=== PATIENT | male | born 1955 | race Caucasian/White ===

== ENCOUNTER 2020-07-02 15:13 | Inpatient (IN) | payer MEDICARE, OTHER ==
[~2020-07-02] VITALS: Ht 170.2 cm; Wt 96.6 kg
--- NOTE | 2020-07-02 15:10 | NUR ---
Got report from [facility] ER Nurse, Glenn. Received PT from [facility] ER via ambulance on a gurney. PT in bed, awake AO X 3. Can be forgetful but easily redirected. PT is super pleasant and cooperative. Make needs known to staff. Assessed Head to Toe. Documented in Nursing flow sheet. SOB and coughing noted. PT on O2 per order. Safety measures provided, call light within reach, bed low and lock. Will continue to monitor.
[2020-07-02 15:42] VITALS: BP 109/68
[2020-07-02] MEDS ORDERED: ONDANSETRON 4 MG/2 ML VIAL IV PRN (17:00)
[2020-07-02] MEDS ORDERED: CEFTRIAXONE 1 G in IV DEXTROSE 5% 50 ML IV SCH (17:00)
[2020-07-02] MEDS ORDERED: ACETAMINOPHEN 650 MG SUPP.RECT RC PRN (17:00)
[2020-07-02] MEDS: CEFTRIAXONE 2 G in IV DEXTROSE 5% 100 ML IV SCH (18:41)
--- NOTE | 2020-07-02 18:50 | NUR ---
PT in bed, awake AO X 3. Can be forgetful but easily redirected. PT is super pleasant and cooperative. Make needs known to staff. No complain of pain. SOB and coughing still noted. Safety measures provided, call light within reach, bed low and lock. Will endorse to evening or night nurse supervisor nurse
[2020-07-02 20:00] VITALS: BP 108/68
--- NOTE | 2020-07-02 20:00 | NUR ---
AWAKE,ALERTX3 IN NO ACUTE DISTRESS. O2 AT 4 LITERS SOB ONLY UPON EXERTION O2 SAT ADEQUATE.SLLEPING AT SHORT INTERVALS.ON COVID ISOLATION ,
[2020-07-02] MEDS ORDERED: AZITHROMYCIN 500MG/ D5W 250ML IVPB **ER PYXIS ONLY IV ONE (20:46)
[2020-07-02] MEDS: AZITHROMYCIN IV 500 MG in IV DEXTROSE 5% 250 ML IV SCH (23:24)
[2020-07-03] VITALS: BP 105/70
[2020-07-03 04:00] VITALS: BP 115/73
--- NOTE | 2020-07-03 07:09 | NUR ---
CONDITION UNCHANGED,IN NO ACUTE DISTRESS.
[2020-07-03 07:47] LABS: BASOPHILS % (AUTO) 0.1 % (0.0-2.0); HEMATOCRIT 44.8 % (36.7-47.1); HEMOGLOBIN 14.5 g/dL (12.5-16.3); LYMPHOCYTES # (AUTO) 0.8 K/uL (20.0-40.0); MEAN CORPUSCULAR HEMOGLOBIN 30.2 uug (23.8-33.4); MEAN CORPUSCULAR HGB CONC 32 g/dL (32.5-36.3); MEAN CORPUSCULAR VOLUME 93.5 fL (73.0-96.2); MONOCYTES # (AUTO) 0.8 K/uL (2.0-10.0); MONOCYTES % (AUTO) 5.1 % (0.0-11.0); NEUTROPHILS # (AUTO) 13.9 K/uL (1.8-8.9); NEUTROPHILS % (AUTO) 89.8 % (38.5-71.5); PLATELET COUNT (AUTO) 190 K/uL (152-348); RED BLOOD CELL COUNT(AUTO) 4.79 MIL/uL (4.06-5.63); WHITE BLOOD COUNT (AUTO) 15.5 K/uL (3.6-10.2)
[2020-07-03 08:19] LABS: BILIRUBIN,TOTAL 0.5 mg/dL (0.2-1.0); CREATININE 1.7 mg/dL (0.6-1.3)
[2020-07-03] MEDS: DEXAMETHASONE SOD PHOSPHATE 4 MG INJ IV SCH (11:11)
[2020-07-03 11:12] VITALS: BP 115/71
[2020-07-03] MEDS ORDERED: POTA10CA43 PO (13:12)
[2020-07-03] MEDS ORDERED: BUDE10.2 IH (13:12)
[2020-07-03] MEDS ORDERED: FURO40TA5 PO (13:12)
[2020-07-03] MEDS ORDERED: LISI10TA5 PO (13:12)
[2020-07-03 15:32] VITALS: BP 132/70
[2020-07-03] MEDS: CEFTRIAXONE 2 G in IV DEXTROSE 5% 100 ML IV SCH (17:56)
--- NOTE | 2020-07-03 18:31 | NUR ---
IN BED RESTING QUIETLY. O2 INCREASED TO 4LI MARY WELL BY PT SAYS HE FEELS BETTER. C/O DIFFICULTY BREATHING ON 2L. 1800 IV ATB IN WHEN I WENT TO FLUSH IV WAS OUT. NOT ABLE TO RESTART IV AT THIS TIME
--- NOTE | 2020-07-03 20:00 | NUR ---
AWAKE,ALERT PASSIVE RESTING COMFORTABLY, NO SOB AT O2 4 LITERS,IV RESTARTED GAUGE 22 ON RIGHT HAND. COVID ISOLATION MANTAINED, IN NO ACUTE DISTRESS SLEPT AT SHORT .
[2020-07-03] MEDS ORDERED: AZITHROMYCIN 500 MG VIAL IV ONE (21:25)
[2020-07-03 21:27] VITALS: BP 110/66
[2020-07-03] MEDS: AZITHROMYCIN IV 500 MG in IV DEXTROSE 5% 250 ML IV SCH (23:26)
[2020-07-04 01:17] VITALS: BP 95/60
[2020-07-04 06:49] VITALS: BP 107/76
[2020-07-04 09:14] LABS: BASOPHILS % (AUTO) 0.1 % (0.0-2.0); HEMATOCRIT 43.9 % (36.7-47.1); HEMOGLOBIN 14.4 g/dL (12.5-16.3); LYMPHOCYTES # (AUTO) 0.8 K/uL (20.0-40.0); LYMPHOCYTES % (AUTO) 4.9 % (20.5-51.5); MEAN CORPUSCULAR HEMOGLOBIN 30.7 uug (23.8-33.4); MEAN CORPUSCULAR HGB CONC 33 g/dL (32.5-36.3); MEAN CORPUSCULAR VOLUME 93.7 fL (73.0-96.2); MONOCYTES # (AUTO) 0.9 K/uL (2.0-10.0); MONOCYTES % (AUTO) 5.7 % (0.0-11.0); NEUTROPHILS # (AUTO) 14.1 K/uL (1.8-8.9); NEUTROPHILS % (AUTO) 89.3 % (38.5-71.5); PLATELET COUNT (AUTO) 228 K/uL (152-348); RED BLOOD CELL COUNT(AUTO) 4.69 MIL/uL (4.06-5.63); WHITE BLOOD COUNT (AUTO) 15.8 K/uL (3.6-10.2)
[2020-07-04] MEDS: FUROSEMIDE 40 MG TABLET PO SCH (09:20)
[2020-07-04] MEDS: LISINOPRIL 10 MG TABLET PO SCH ×2 (09:34→17:00)
[2020-07-04 09:46] LABS: CREATININE 1.6 mg/dL (0.6-1.3); MAGNESIUM 2.8 mg/dL (1.8-2.4); PHOSPHOROUS 3.3 mg/dL (2.5-4.9)
[2020-07-04 12:00] VITALS: BP 124/71
[2020-07-04 16:00] VITALS: BP 107/65
[2020-07-04] MEDS: CEFTRIAXONE 2 G in IV DEXTROSE 5% 100 ML IV SCH (17:10)
[2020-07-04] MEDS: DEXAMETHASONE SOD PHOSPHATE 4 MG INJ IV SCH (17:19)
--- NOTE | 2020-07-04 19:30 | NUR ---
Pt received in bed awake. On 15L NR sating at 94%. No acute distress noted. Pt denies pain. Call light is within reach. Bed is locked and in lowest position. No other issues or concerns at this time.
[2020-07-04 20:00] VITALS: BP 95/57
[2020-07-04 21:11] VITALS: BP 90/56
[2020-07-04] MEDS: AZITHROMYCIN IV 500 MG in IV DEXTROSE 5% 250 ML IV SCH (22:43)
[2020-07-04] MEDS: ENOXAPARIN SODIUM 40 MG/0.4 ML DISP.SYRIN SQ SCH (22:44)
[2020-07-05] VITALS: BP 99/59
[2020-07-05 01:31] VITALS: BP 96/61
[2020-07-05 04:00] VITALS: BP 97/62
--- NOTE | 2020-07-05 08:30 | NUR ---
Pt eating his breakfast without the NRB mask. PT SOB checked o2 sat 80%. Put NRB mask back on pt saturation went back to 94%. Educated pt to keep NRB mask while eating. Pt agreeable with plan of care. Pt denies any c/o pain. Call light is within reach.
[2020-07-05] MEDS: LISINOPRIL 10 MG TABLET PO SCH ×2 (09:00→17:00)
[2020-07-05] MEDS: FUROSEMIDE 40 MG TABLET PO SCH (09:18)
[2020-07-05] MEDS: DEXAMETHASONE SOD PHOSPHATE 4 MG INJ IV SCH (09:18)
[2020-07-05 10:07] LABS: ABG BASE EXCESS 1.1 mmol/L; ABG HCO3 23.4 mmol/L; ABG PCO2 30.9 mmHg (35.0-45.0); ABG PH 7.498 (7.350-7.450); ABG PO2 106.1 mmHg (75.0-100.0); ABG SITE LEFT RADIAL; ABG TOTAL HEMOGLOBIN 13.9 G/dL (13.5-18.0); COHb 0.2 % (0.5-1.5); MetHb 0.2 % (0.0-1.5)
[2020-07-05] MEDS ORDERED: LORAZEPAM 1 MG TABLET PO PRN (11:15)
[2020-07-05 11:53] VITALS: BP 120/71
[2020-07-05 16:00] VITALS: BP 16/68
[2020-07-05] MEDS: CEFTRIAXONE 2 G in IV DEXTROSE 5% 100 ML IV SCH (17:16)
--- NOTE | 2020-07-05 18:00 | NUR ---
PER DR. TRUONG, PATIENT PUT ON HI FLOW CURRENT SETTING AT 40 LPM WITH FIO2 100%. PT SATURATING 96%. PT MORE COMFORTABLE AND BREATHING LESS LABORED.
[2020-07-05 20:47] VITALS: BP 104/64
[2020-07-05] MEDS: ENOXAPARIN SODIUM 40 MG/0.4 ML DISP.SYRIN SQ SCH (21:20)
[2020-07-05] MEDS: AZITHROMYCIN IV 500 MG in IV DEXTROSE 5% 250 ML IV SCH (22:37)
[2020-07-06 00:56] VITALS: BP 104/63
[2020-07-06] MEDS: ACETAMINOPHEN 325 MG TABLET PO PRN (01:18)
[2020-07-06 04:00] VITALS: BP 112/72
[2020-07-06] MEDS: LISINOPRIL 10 MG TABLET PO SCH ×2 (08:34→16:36)
[2020-07-06] MEDS: DEXAMETHASONE SOD PHOSPHATE 4 MG INJ IV SCH (08:34)
--- NOTE | 2020-07-06 10:00 | NUR ---
Patient alert and oriented. Noted with labored breathing on fio2 100% 40 Lpm O2 sat at 93%. Added NRB mask at 15Lpm. 1030am Patient breathing less labored. Intervention effective.
[2020-07-06 11:42] VITALS: BP 117/70
[2020-07-06] MEDS: FUROSEMIDE 40 MG TABLET PO SCH (12:12)
[2020-07-06 16:00] VITALS: BP 121/66
--- NOTE | 2020-07-06 17:57 | NUR ---
Patient's breathing less labored. More comfortable on high flow O2 saturation noted at 93%.
[2020-07-06 20:00] VITALS: BP 127/81
[2020-07-06] MEDS: ENOXAPARIN SODIUM 40 MG/0.4 ML DISP.SYRIN SQ SCH (21:50)
[2020-07-07] VITALS: BP 122/81
[2020-07-07] MEDS: ACETAMINOPHEN 325 MG TABLET PO PRN (03:21)
[2020-07-07 04:00] VITALS: BP 103/71
[2020-07-07 07:05] LABS: BASOPHILS % (AUTO) 0.1 % (0.0-2.0); HEMATOCRIT 39.8 % (36.7-47.1); HEMOGLOBIN 13.2 g/dL (12.5-16.3); LYMPHOCYTES # (AUTO) 0.6 K/uL (20.0-40.0); LYMPHOCYTES % (AUTO) 6.4 % (20.5-51.5); MEAN CORPUSCULAR HEMOGLOBIN 30.8 uug (23.8-33.4); MEAN CORPUSCULAR HGB CONC 33 g/dL (32.5-36.3); MEAN CORPUSCULAR VOLUME 93.2 fL (73.0-96.2); MONOCYTES # (AUTO) 0.7 K/uL (2.0-10.0); NEUTROPHILS # (AUTO) 8.1 K/uL (1.8-8.9); NEUTROPHILS % (AUTO) 86.5 % (38.5-71.5); PLATELET COUNT (AUTO) 224 K/uL (152-348); RED BLOOD CELL COUNT(AUTO) 4.28 MIL/uL (4.06-5.63); WHITE BLOOD COUNT (AUTO) 9.4 K/uL (3.6-10.2)
[2020-07-07 07:39] LABS: CREATININE 1.6 mg/dL (0.6-1.3); POTASSIUM 4.1 mmol/L (3.5-5.1)
[2020-07-07] MEDS: LISINOPRIL 10 MG TABLET PO SCH ×2 (09:00→17:00)
[2020-07-07] MEDS: FUROSEMIDE 40 MG TABLET PO SCH (09:59)
[2020-07-07] MEDS: DEXAMETHASONE SOD PHOSPHATE 4 MG INJ IV SCH (09:59)
[2020-07-07 12:00] VITALS: BP 111/67
[2020-07-07 16:00] VITALS: BP 109/76
--- NOTE | 2020-07-07 17:01 | NUR ---
Patient alert and oriented. Patient's breathing less labored on fio2 100% 40 Lpm O2 sat at 93%. More comfortable on high flow O2 saturation noted at 93%. provided bedside commode for easy of toileting
[2020-07-07 20:00] VITALS: BP 117/69
--- NOTE | 2020-07-07 20:00 | NUR ---
Pt in bed, awake and oriented. Midline at right upper arm. Very cooperative, able to make needs known. VS stable. No complaints of pain. Call light is within reach, bed is low and locked.
[2020-07-07 20:03] VITALS: BP 117/69
[2020-07-07] MEDS: ENOXAPARIN SODIUM 40 MG/0.4 ML DISP.SYRIN SQ SCH (20:36)
[2020-07-08 04:27] VITALS: BP 115/72
[2020-07-08 06:14] VITALS: BP 115/72
--- NOTE | 2020-07-08 06:30 | NUR ---
Pt well rested at night. No complaints of pain. Safety measures implemented.
[2020-07-08] MEDS: FUROSEMIDE 40 MG TABLET PO SCH (09:16)
[2020-07-08] MEDS: DEXAMETHASONE SOD PHOSPHATE 4 MG INJ IV SCH (09:16)
[2020-07-08] MEDS: LISINOPRIL 10 MG TABLET PO SCH ×2 (09:33→17:11)
[2020-07-08 12:04] VITALS: BP 119/71
[2020-07-08 16:00] VITALS: BP 104/70
--- NOTE | 2020-07-08 18:36 | NUR ---
Patient remains alert, oriented x 3, not in any form of acute distress, on high flow nasal cannula 40 L. He denies any pain or discomfort. Needs attended to promptly. Call light and frequently used items placed within patient's reach. Right upper arm midline in place and patent with no signs of infection. Will continue to monitor and will endorse accordingly to next shift nurse.
[2020-07-08] MEDS: ENOXAPARIN SODIUM 40 MG/0.4 ML DISP.SYRIN SQ SCH (20:26)
[2020-07-08 20:27] VITALS: BP 102/62
--- NOTE | 2020-07-08 21:51 | NUR ---
Received pt sleeping comfortably. Aroused easily to verbal stimuli. AAO x3. On high flow 40L via NC, no acute distress noted. Denies pain/ discomfort. Safety measures maintained. Call light and personal items within reach. Will continue to monitor.
[2020-07-09 00:33] VITALS: BP 111/76
[2020-07-09 04:50] VITALS: BP 112/78
[2020-07-09] MEDS: FUROSEMIDE 40 MG TABLET PO SCH (08:24)
[2020-07-09] MEDS: DEXAMETHASONE SOD PHOSPHATE 4 MG INJ IV SCH (08:24)
[2020-07-09] MEDS: LISINOPRIL 10 MG TABLET PO SCH ×2 (08:24→17:00)
[2020-07-09 11:10] LABS: BASOPHILS # (AUTO) 0.2 K/uL (0.0-8.0); BASOPHILS % (AUTO) 1.5 % (0.0-2.0); EOSINOPHILS % (AUTO) 0.3 % (0.0-7.0); HEMATOCRIT 40.7 % (36.7-47.1); HEMOGLOBIN 13.6 g/dL (12.5-16.3); LYMPHOCYTES # (AUTO) 0.5 K/uL (20.0-40.0); LYMPHOCYTES % (AUTO) 3.9 % (20.5-51.5); MEAN CORPUSCULAR HGB CONC 33 g/dL (32.5-36.3); MONOCYTES # (AUTO) 0.4 K/uL (2.0-10.0); MONOCYTES % (AUTO) 3.5 % (0.0-11.0); NEUTROPHILS # (AUTO) 11.2 K/uL (1.8-8.9); NEUTROPHILS % (AUTO) 90.8 % (38.5-71.5); PLATELET COUNT (AUTO) 226 K/uL (152-348); RED BLOOD CELL COUNT(AUTO) 4.38 MIL/uL (4.06-5.63); WHITE BLOOD COUNT (AUTO) 12.3 K/uL (3.6-10.2)
[2020-07-09 11:13] LABS: CREATININE 1.4 mg/dL (0.6-1.3); MAGNESIUM 2.3 mg/dL (1.8-2.4)
[2020-07-09 12:00] VITALS: BP 102/63
[2020-07-09 16:00] VITALS: BP 108/67
[2020-07-09 20:12] VITALS: BP 113/68
[2020-07-09] MEDS: ENOXAPARIN SODIUM 40 MG/0.4 ML DISP.SYRIN SQ SCH (20:57)
--- NOTE | 2020-07-09 21:27 | NUR ---
Received pt sleeping comfortably. Aroused easily to verbal stimuli. AAO x3. On high flow 40L via NC. No acute distress noted. Breathing non- labored. Denies SOB, pain, discomfort. Due med given as ordered. Safety measures maintained. Call light and personal items within reach. Will continue to monitor.
[2020-07-10 00:10] VITALS: BP 105/70
[2020-07-10 04:21] VITALS: BP 104/66
--- NOTE | 2020-07-10 06:38 | NUR ---
Pt desated to 85% , labored breathing, on 40L high flow NC upon going to the bedside commode. Put on 15L non- rebreather mask, with relief and saturation of 93%. Will continue to monitor.
--- NOTE | 2020-07-10 07:30 | NUR ---
received report on patient. patient resting in bed, awake alert and oriented x3. Patient is on high flow O2 40L via NC and non rebreather saturating at 97%. no signs of distress noted. patient has a right upper arm midline. bed in low and locked position, safety and isolation precautions in place. Will continue to monitor.
[2020-07-10] MEDS: LISINOPRIL 10 MG TABLET PO SCH ×2 (09:00→17:00)
[2020-07-10] MEDS: FUROSEMIDE 40 MG TABLET PO SCH (10:07)
[2020-07-10] MEDS: DEXAMETHASONE SOD PHOSPHATE 4 MG INJ IV SCH (10:07)
[2020-07-10 11:16] VITALS: BP 100/67
[2020-07-10 12:00] VITALS: BP 96/61
--- NOTE | 2020-07-10 12:35 | NUR ---
Spoke to pt brother (Martell), gave updates on pt. Will continue to monitor.
[2020-07-10 16:22] VITALS: BP 93/62
--- NOTE | 2020-07-10 18:47 | NUR ---
Patient awake alert and oriented x 3. Patient on O2 via high flow oxygen 40L NC and nonrebreather at 15L, saturating at 93%, no signs of distress noted at this time. Patient on a classroom monitor, sinus rodríguez. IV midline on the right upper extremity. Pt. uses urinal and commode at bedside, skin intact. Medications given as ordered. COVID isolation and safety precautions in place. Will endorse to oncoming nurse.
[2020-07-10] MEDS: ENOXAPARIN SODIUM 40 MG/0.4 ML DISP.SYRIN SQ SCH ×2 (20:48→21:46)
[2020-07-10 21:31] VITALS: BP 108/74
[2020-07-11 01:19] VITALS: BP 107/71
[2020-07-11 06:40] VITALS: BP 99/62
[2020-07-11 07:35] LABS: BASOPHILS % (AUTO) 0.1 % (0.0-2.0); EOSINOPHILS # (AUTO) 0.1 K/uL (0.0-0.7); EOSINOPHILS % (AUTO) 0.4 % (0.0-7.0); HEMATOCRIT 41.2 % (36.7-47.1); LYMPHOCYTES # (AUTO) 0.9 K/uL (20.0-40.0); MEAN CORPUSCULAR HEMOGLOBIN 31.3 uug (23.8-33.4); MEAN CORPUSCULAR HGB CONC 34 g/dL (32.5-36.3); MEAN CORPUSCULAR VOLUME 92.1 fL (73.0-96.2); MONOCYTES # (AUTO) 0.5 K/uL (2.0-10.0); MONOCYTES % (AUTO) 3.9 % (0.0-11.0); NEUTROPHILS # (AUTO) 11.8 K/uL (1.8-8.9); NEUTROPHILS % (AUTO) 88.6 % (38.5-71.5); PLATELET COUNT (AUTO) 247 K/uL (152-348); RED BLOOD CELL COUNT(AUTO) 4.47 MIL/uL (4.06-5.63); WHITE BLOOD COUNT (AUTO) 13.3 K/uL (3.6-10.2)
[2020-07-11 08:14] LABS: CREATININE 1.3 mg/dL (0.6-1.3); MAGNESIUM 2.3 mg/dL (1.8-2.4); PHOSPHOROUS 3.8 mg/dL (2.5-4.9); POTASSIUM 4.4 mmol/L (3.5-5.1)
[2020-07-11] MEDS: LISINOPRIL 10 MG TABLET PO SCH ×2 (09:00→16:38)
[2020-07-11] MEDS: DEXAMETHASONE SOD PHOSPHATE 4 MG INJ IV SCH (09:27)
[2020-07-11] MEDS: FUROSEMIDE 40 MG TABLET PO SCH (09:28)
[2020-07-11 12:00] VITALS: BP 104/62
[2020-07-11 13:50] LABS: BAND % (MANUAL) 23 % (0-10); LYMPHOCYTES % (MANUAL) 11 % (20-40); MONOCYTES % (MANUAL) 5 % (2-10); NEUTROPHILS % (MANUAL) 61 % (42-75)
[2020-07-11 16:28] VITALS: BP 105/76
[2020-07-11 21:07] VITALS: BP 93/58
[2020-07-11] MEDS: ENOXAPARIN SODIUM 40 MG/0.4 ML DISP.SYRIN SQ SCH (22:09)
[2020-07-11] MEDS: ACETAMINOPHEN 325 MG TABLET PO PRN (22:26)
[2020-07-12 00:32] VITALS: BP 99/60
[2020-07-12 05:10] VITALS: BP 94/60
--- NOTE | 2020-07-12 08:00 | NUR ---
Patient in bed. Alert and oriented. Patient is on O2 nonrebreather at 15L, saturating at 100%. No signs of distress noted. IV Midline on Right Upper Arm. COVID isolation and precautions in place. Will continue to monitor.
[2020-07-12] MEDS: ENSURE ENLIVE (VAN) 240 ML LIQUID PO SCH ×2 (08:58→17:00)
[2020-07-12] MEDS: LISINOPRIL 10 MG TABLET PO SCH ×2 (09:00→17:00)
[2020-07-12] MEDS: DEXAMETHASONE SOD PHOSPHATE 4 MG INJ IV SCH (09:04)
[2020-07-12] MEDS: FUROSEMIDE 40 MG TABLET PO SCH (09:10)
[2020-07-12 11:30] VITALS: BP 111/57
[2020-07-12 15:57] VITALS: BP 107/61
--- NOTE | 2020-07-12 16:30 | NUR ---
DR TRUONG HERE TO SEE PATIENT WITH NO NEW ORDERS AT THIS TIME.
--- NOTE | 2020-07-12 18:00 | NUR ---
REMAIN ON O2 HI FLOW AND NRM WITH SATS AT 88-89 DR TRUONG AWARE AND STATED TO JUST OBSERVE HIM FOR NOW LONG HIS SATS IS ABOVE 85 WILL NOT NEED TO INTUBATE.
--- NOTE | 2020-07-12 20:00 | NUR ---
Received patient lying in bed. AAOx3-4. Denies any pain or SOB. On high flow O2 at 40L with 100% FiO2. O2 sat at 90% at this time. Sinus rodríguez on tele at 59/min at this time. IV site on right arm intact and patent. COVID isolation precaution initiated. Safety measure initiated and call bowers within reached.
[2020-07-12] MEDS: ENOXAPARIN SODIUM 40 MG/0.4 ML DISP.SYRIN SQ SCH (20:47)
[2020-07-12 22:49] VITALS: BP 90/58
[2020-07-13 01:06] VITALS: BP 99/61
[2020-07-13 04:37] VITALS: BP 98/62
[2020-07-13] MEDS: ALBUTEROL SULFATE 8 GM HFA.AER.AD IH PRN ×2 (06:05→09:41)
--- NOTE | 2020-07-13 06:36 | NUR ---
Patient slept well last night. No significant event noted throughout the shift. Remains on high flow O2 at 40L with 100% FiO2. O2 sat fluctuates between 87-90%. Patient denies any SOB when asked. NSR on tele at 68/min. IV site on right arm intact and patent. COVID isolation precaution maintained. Safety measure maintained and call bowers within reached.
[2020-07-13] MEDS: ENSURE ENLIVE (VAN) 240 ML LIQUID PO SCH ×2 (08:17→16:55)
[2020-07-13] MEDS: FUROSEMIDE 40 MG TABLET PO SCH (08:30)
[2020-07-13] MEDS: LISINOPRIL 10 MG TABLET PO SCH ×2 (09:00→17:00)
--- NOTE | 2020-07-13 10:47 | NUR ---
PATIENT WAS SEEN BY THE PHYSICAL THERAPY AND HE STOOD UP O2 SAT DOWN TO 80 PERCENT BUT WAS AT 84 PERCENT IN BED WITH EXERCISE BACK IN BED AT THIS TIME WILL RECHECK SATS AT REST.DENIES SHORTNESS OF BREATH AT THIS TIME
[2020-07-13 11:48] VITALS: BP 112/62
[2020-07-13 16:00] VITALS: BP 114/55
[2020-07-13] MEDS: ACETAMINOPHEN 325 MG TABLET PO PRN (16:17)
--- NOTE | 2020-07-13 16:52 | NUR ---
PATIENT SEEN AND EXAMINED BY DR TRUONG WITH NEW ORDERS AND NOTED HE WAS ALSO MEDICATED WITH TYLENOL HIS TEMP WAS 100.4 LIMA SIMS HERE AND AWARE WITH NO NEW ORDERS AT THIS TIME
[2020-07-13 20:30] VITALS: BP 104/54
[2020-07-13] MEDS: ENOXAPARIN SODIUM 40 MG/0.4 ML DISP.SYRIN SQ SCH (20:50)
--- NOTE | 2020-07-13 21:00 | NUR ---
SLEEPING IN BED EASILY AROUSABLE ABLE TO USE URINAL AND VOIDED JUDY COLORED URINE REMAIN ON COVID ISOLATION AND PRECAUTION ON O2 HI FLOW 40 PERCENT AND NRM AT 15 LITERS SATS STILL AT 89-89 PERCENT NO SOB AT THIS TIME CALL LIGHTS AND PERSONAL BELONGINGS ARE WITHIN EASY REACH MADE COMFORTABLE WILL CONTINUE TO OBSERVE.
[2020-07-14] VITALS (10 sets, daily range): BP systolic 82–181; BP diastolic 52–110
--- NOTE | 2020-07-14 06:12 | NUR ---
PT SLEPT INTERMITTENTLY. PRESCRIBED MEDICATION GIVEN AND PT TOLERATED IT WELL. PT ON SINUS RHYTHM. PT IN NO ACUTE RESPIRATORY DISTRESS. PT STILL ON HIGH FLOW NASAL CANNULA AT 40L AND 15 NRM. SAFETY AND COMFORT PROVIDED. ALL NEEDS ARE MET. WILL ENDORSE TO INCOMING NURSE FOR CONTINUITY OF CARE.
[2020-07-14 06:19] LABS: BASOPHILS # (AUTO) 0.1 K/uL (0.0-8.0); BASOPHILS % (AUTO) 0.3 % (0.0-2.0); EOSINOPHILS % (AUTO) 0.1 % (0.0-7.0); HEMATOCRIT 42.6 % (36.7-47.1); HEMOGLOBIN 14.5 g/dL (12.5-16.3); LYMPHOCYTES # (AUTO) 0.6 K/uL (20.0-40.0); LYMPHOCYTES % (AUTO) 2.8 % (20.5-51.5); MEAN CORPUSCULAR HEMOGLOBIN 31.4 uug (23.8-33.4); MEAN CORPUSCULAR HGB CONC 34 g/dL (32.5-36.3); MEAN CORPUSCULAR VOLUME 92.8 fL (73.0-96.2); MONOCYTES # (AUTO) 0.5 K/uL (2.0-10.0); MONOCYTES % (AUTO) 2.4 % (0.0-11.0); NEUTROPHILS # (AUTO) 19.6 K/uL (1.8-8.9); NEUTROPHILS % (AUTO) 94.4 % (38.5-71.5); PLATELET COUNT (AUTO) 234 K/uL (152-348); WHITE BLOOD COUNT (AUTO) 20.8 K/uL (3.6-10.2)
[2020-07-14 07:19] LABS: BILIRUBIN,DIRECT 0.5 mg/dL (0.0-0.2); CREATININE 1.5 mg/dL (0.6-1.3); MAGNESIUM 2.3 mg/dL (1.8-2.4); PHOSPHOROUS 3.2 mg/dL (2.5-4.9); POTASSIUM 3.9 mmol/L (3.5-5.1); TOTAL PROTEIN, SERUM 6.7 g/dL (6.4-8.2)
[2020-07-14] MEDS: ENSURE ENLIVE (VAN) 240 ML LIQUID PO SCH ×2 (08:43→17:00)
[2020-07-14] MEDS: FUROSEMIDE 40 MG TABLET PO SCH (08:43)
[2020-07-14] MEDS: LISINOPRIL 10 MG TABLET PO SCH ×2 (12:12→17:00)
--- NOTE | 2020-07-14 15:00 | NUR ---
O2 SATURATION AT THIS TIME IS 79 BLOOD PRESSURE IS 95/52 DESPITE DOUBLE COMBO OF HI FLOW 40 PERCENT AND NON REBREATHER MASK AT 15 LITERS CALLED RESPIRATORY AND HE STATED THAT HE IS UNABLE TO RAISE THE O2 SAT SO I CALLED RAPID RESPONSE STAT ABD WAS DONE AND PATIENT PLACED ON BIPAP AT 18/8 SATS STILL AT 83 PERCENT.
[2020-07-14 15:07] LABS: ABG BASE EXCESS -0.2 mmol/L; ABG HCO3 21.1 mmol/L; ABG PCO2 26.8 mmHg (35.0-45.0); ABG PH 7.514 (7.350-7.450); ABG PO2 44.3 mmHg (75.0-100.0); ABG SITE RIGHT RADIAL; COHb 0.7 % (0.5-1.5); MetHb 0.2 % (0.0-1.5); O2Hb 83.6 % (94.0-97.0); VENT MODE HF - Aquinox
--- NOTE | 2020-07-14 15:11 | NUR ---
DR TRUONG HERE AND ABG GIVEN TO HIM AND HE REVIEWED IT AND STATED TO INCREASE THE BIPAP SETTING TO A MAX OF 22/12 TO ACHIEVE SATURATION OF HIGH 80S TO LOW 90S.RESOIRATORY THERAPIST AT THE BEDSIDE AND HANDLING THE SETTINGS.
--- NOTE | 2020-07-14 15:17 | NUR ---
SATS STILL DOWN AT 85-86 SETTING INCREASED TO 22/12 AT THIS TIME WITH SATS AT 83 PERCENT.
[2020-07-14] MEDS ORDERED: LORAZEPAM 2 MG/1 ML VIAL IV PRN (15:30)
--- NOTE | 2020-07-14 15:35 | NUR ---
PATIENT SEEM TO HAVING SOME ANXIETY SATS STILL 83-84 LIMA SIMS NOTIFIED WITH ORDER TO GIVE ATIVAN TO TRY TO CALM HIM DOWN.
--- NOTE | 2020-07-14 15:37 | NUR ---
ORDER FOR ATIVAN RECEIVED FROM LIAM PEDRO AND GIVEN ORDERED MADE COMFORTABLE
--- NOTE | 2020-07-14 16:15 | NUR ---
MINICA HER SATS STILL DOWN PATIENT IS AWAKE ALERT WITH SATS STILL AT 83-85 PERCENT.GENERAL CONDITION IS POOR AT THIS TIME.
[2020-07-14] MEDS ORDERED: CEFEPIME HCL 1 G in IV DEXTROSE 5% 50 ML IV SCH (16:30)
--- NOTE | 2020-07-14 16:39 | NUR ---
LIMA SIMS [facility] PROVIDER HERE AND SEEN PATIENT AWARE OF BIPAP USE AND POOR DETERIORATING CONDITION AND SHE CALLED AND SPOKE WITH PATIENTS BROTHER LISSETTE AND UPDATED HIM ON POOR CONDITION AND HE INFORMED LIMA THAT PATIENT IS STATE CONSERVED SO LIMA CALLED AND LEFT A MESSAGE WITH THE COURT CONSERVATOR AWAITING FOR RETURN CALL..
--- NOTE | 2020-07-14 16:48 | NUR ---
BLOOD PRESSURE AT THIS TIME IS 84/49 LIMA MEDICAL PROVIDER HERE AND STATED THAT PATIENT SHOULD BE TRANSFERED TO THE EMERGENCY ROOM FOR POSSIBLE INTUBATION SOON ROOM IS AVAILABLE CUSTOMER COMPLAINT SERVICE SUPERVISOR IS AWARE.
[2020-07-14] MEDS ORDERED: NOREPINEPHRINE BITARTRATE 32 MG in IV NORMAL SALINE 218 ML IV PRN ×2 (17:00→18:30)
[2020-07-14] MEDS ORDERED: IV NS 1000 ML 1,000 ML IV ONE (17:15)
--- NOTE | 2020-07-14 17:30 | NUR ---
DR TRUONG HERE AND SEEN PATIENT AND STATED FOR PATIENT TO BE TRANSFERED TO ICU FOR HIGHER LEVEL OF CARE INCLUDING INTUBATION AND LEVOPHED FOR BLOOD PRESSURE CONTROL.
[2020-07-14] MEDS ORDERED: CEFEPIME HCL 2 G in IV DEXTROSE 5% 100 ML IV SCH (18:00)
--- NOTE | 2020-07-14 18:00 | NUR ---
CALL RECEIVED FROM THE [facility] SPOKE WITH LAURA WITH LIS[place]TE ON A THREE WAY LINE SHE WAS ASKING LISSETTE PATIENTS BROTHER IF HE IS ABLE TO MAKE LEGAL MEDICAL DECISION FOR HIS BROTHER LISSETTE STATED THAT HE IS ABLE IF ITS LEGAL FOR HIM TO DO SO BEARING IN MIND THAT THAT PATIENT IS COURT CONSERVED SO LAURA STATED OKAY WILL RECHECK THEIR POLICY AND WILL CALL BACK TO LET US KNOW WHO CAN MAKE LEGAL MEDICAL DECISIONS SO I GAVE HER LIMA SIMS [employer] PHONE NUMBER TO REACH OUT TO HER WHEN THEY DECIDE ON WHO CAN DECIDE FOR THE PATIENT.LIMA SIMS WAS ALOS NOTIFIED OF THIS CONVERSATION
--- NOTE | 2020-07-14 18:40 | NUR ---
PATIENT TRANSPOTED BY BED TO ED ROOM 2 IN SAME CONDITION WITH IVF ORDERED BLOOD PRESSURE REMAINS LOW WITH ALL HIS PERSONAL BELONGINGS REPORT WAS GIVEN TO ED RN AND SHE EXPRESSED UNDERSTANDING.
--- NOTE | 2020-07-14 20:54 | NUR ---
MD Bronson (Pulmonary) paged and speaking with ER MD Snyder at this time for ventilator settings adjustments
[2020-07-14] MEDS ORDERED: ENOXAPARIN SODIUM 100 MG/ML DISP.SYRIN SQ SCH (21:00)
[2020-07-14] MEDS ORDERED: PROPOFOL 100 ML ONE (21:11)
[2020-07-14] MEDS ORDERED: methylPREDNISolone SOD SUCC 40 MG/ML VIAL ONE (21:25)
[2020-07-14] MEDS ORDERED: methylPREDNISolone SOD SUCC 125 MG/2 ML VIAL IV SCH (22:00)
== END 2020-07-14 21:45 | DRG 871 ==
LOC: TELE3 15:13 → UNDOADMIN 15:13 → TELE3 07-12 15:13 → TELE 07-12 17:32 → TELE3 07-12 17:32 → TELE 07-14 18:40 → OBSER 07-14 18:40 → MED 07-14 19:16 → TRANSITION 07-14 19:25 → MED 07-14 19:25 → TRANSITION 07-14 19:39 → TELE3 07-14 19:39 → TRANSITION 07-14 19:56
PROVIDERS: ADMIT Nurse Practitioner Acute Care; ATTEND Nurse Practitioner Acute Care
PROC: 05HY33Z Insertion of Infusion Device into Upper Vein, Percutaneous Approach (ICD-10-PCS; principal; 2020-07-07)
DX: A41.89 Other specified sepsis (principal); U07.1 COVID-19; J12.82 Pneumonia due to coronavirus disease 2019; J96.01 Acute respiratory failure with hypoxia; N17.0 Acute kidney failure with tubular necrosis; E43 Unspecified severe protein-calorie malnutrition; J15.9 Unspecified bacterial pneumonia; R65.21 Severe sepsis with septic shock; E87.0 Hyperosmolality and hypernatremia; G93.40 Encephalopathy, unspecified; I13.0 Hypertensive heart and chronic kidney disease with heart failure and stage 1 through stage 4 chronic kidney disease, or unspecified chronic kidney disease; E66.9 Obesity, unspecified; Z68.33 Body mass index [BMI] 33.0-33.9, adult; N13.9 Obstructive and reflux uropathy, unspecified; F41.9 Anxiety disorder, unspecified; I50.9 Heart failure, unspecified; R53.1 Weakness; K21.9 Gastro-esophageal reflux disease without esophagitis; M19.90 Unspecified osteoarthritis, unspecified site; N18.9 Chronic kidney disease, unspecified
CPT/HCPCS: 36415; 36600; 70030-TC; 71045; 83605; 83615; 83735; 83970; 84100; 85025; 85610; 85730; 86140; 94660; A4217; A4663; G0378; J0456; J0692; J0696; J1100; J1650; J2060; J2920; J2930; J3490; J3535; J7030; J7050; J7060

== ENCOUNTER 2020-07-14 21:44 | Inpatient (IN) | payer MEDICARE, OTHER ==
[~2020-07-14 21:44] MED LIST: BUDE10.2 IH; FURO40TA5 PO; LISI10TA29 PO; LORAZEPAM 2 MG/1 ML VIAL ONE; POTA10CA43 PO; PROPOFOL 100 ML ONE
--- NOTE | 2020-07-14 21:44 | NUR ---
Received patient from [facility] at 1900, patient noted on ventilator at this time
[2020-07-14] MEDS ORDERED: ETOMIDATE 20 MG/10 ML VIAL IV ONE ×2 (21:45)
[2020-07-14] MEDS ORDERED: SUCCINYLCHOLINE CHLORIDE 200 MG/10 ML VIAL IV ONE (21:45)
[2020-07-14] MEDS ORDERED: LORAZEPAM 2 MG/1 ML VIAL IV ONE (22:00)
[2020-07-14] MEDS ORDERED: PROPOFOL 100 ML IV ONE (22:00)
[2020-07-15 00:19] LABS: ABG PH 7.101 (7.350-7.450); ABG PO2 78.7 mmHg (75.0-100.0); ABG SITE RIGHT RADIAL; ABG TOTAL HEMOGLOBIN 17.4 G/dL (13.5-18.0); COHb 0.6 % (0.5-1.5); MetHb 0.2 % (0.0-1.5); O2Hb 81.1 % (94.0-97.0); VENT MODE VENT - A/C; VT, ABG 550 mL
[2020-07-15 00:26] LABS: ABG BASE EXCESS -6.8 mmol/L; ABG HCO3 23.4 mmol/L; ABG PCO2 66.1 mmHg (35.0-45.0); ABG PH 7.166 (7.350-7.450); ABG PO2 49.4 mmHg (75.0-100.0); ABG SITE RIGHT RADIAL; ABG TOTAL HEMOGLOBIN 17.2 G/dL (13.5-18.0); COHb 0.9 % (0.5-1.5); MetHb 0.4 % (0.0-1.5); O2Hb 73.1 % (94.0-97.0); VENT MODE VENT - A/C; VT, ABG 550 mL
--- NOTE | 2020-07-15 00:30 | NUR ---
MD Bronson informed of patients current ABG results with new orders for an ABG in the am and to increase the tidal Volume from 550 to 600
[2020-07-15] MEDS ORDERED: PROPOFOL 100 ML ONE ×2 (02:40→08:38)
--- NOTE | 2020-07-15 07:22 | NUR ---
levophed noted at 0.3 mcg, propofol noted at 35 mcg
--- NOTE | 2020-07-15 07:30 | NUR ---
PATIENT ON FREQUENT VS MONITORING. HE IS INTUBATED, MEDS RUNNING VIA MIDLINE. PROPOFOL AT 35 MCG/KG/MINUTE ORDERED. LEVOPHED AT .3 MCG/MIN/KG ORDERED.
[2020-07-15] MEDS ORDERED: NOREPINEPHRINE BITARTRATE 8 MG in IV NORMAL SALINE 250 ML IV PRN (08:45)
--- NOTE | 2020-07-15 09:27 | NUR ---
RT at bedside for ABG draw.
--- NOTE | 2020-07-15 10:05 | NUR ---
BP decreasing. Dr Simmons notified. propofol stopped. levophed upped to .4 mcg/kg/min. Will monitor. RT at bedside for ABG
[2020-07-15 10:13] LABS: BILIRUBIN,TOTAL 1.4 mg/dL (0.2-1.0); CREATININE 4.5 mg/dL (0.6-1.3); MAGNESIUM 3.1 mg/dL (1.8-2.4); POTASSIUM 5.4 mmol/L (3.5-5.1); TOTAL PROTEIN, SERUM 7.8 g/dL (6.4-8.2)
[2020-07-15 10:14] LABS: LYMPHOCYTES # (AUTO) 0.7 K/uL (20.0-40.0)
[2020-07-15 10:16] LABS: BASOPHILS # (AUTO) 0.2 K/uL (0.0-8.0); BASOPHILS % (AUTO) 0.4 % (0.0-2.0); HEMATOCRIT 51.9 % (36.7-47.1); HEMOGLOBIN 17.1 g/dL (12.5-16.3); LYMPHOCYTES % (AUTO) 1.7 % (20.5-51.5); MEAN CORPUSCULAR HEMOGLOBIN 31.4 uug (23.8-33.4); MEAN CORPUSCULAR HGB CONC 33 g/dL (32.5-36.3); MEAN CORPUSCULAR VOLUME 95.5 fL (73.0-96.2); MONOCYTES # (AUTO) 1.4 K/uL (2.0-10.0); MONOCYTES % (AUTO) 3.3 % (0.0-11.0); NEUTROPHILS % (AUTO) 94.6 % (38.5-71.5); PLATELET COUNT (AUTO) 224 K/uL (152-348); RED BLOOD CELL COUNT(AUTO) 5.43 MIL/uL (4.06-5.63)
[2020-07-15 10:24] LABS: PHOSPHOROUS 8.8 mg/dL (2.5-4.9)
--- NOTE | 2020-07-15 10:24 | NUR ---
BP came up. Turned patient to the left side. Levophed at .4 mcg/kg/minute
[2020-07-15 10:25] LABS: WHITE BLOOD COUNT (AUTO) 41.2 K/uL (3.6-10.2)
--- NOTE | 2020-07-15 10:38 | NUR ---
Spoke to Dr Grier on the phone regarding fluctuating BP and heart rate. I also notified him of abnormal labs including phosphorus, creatinine and WBC, H/H, Na, K. I received an order for IV fluids which I will process now...
--- NOTE | 2020-07-15 10:50 | NUR ---
PER PHARMACY, I CANNOT GIVE THE ORDERED IV FLUIDS (1/2NS WITH 2 AMP BICRB) WITH LEVOPHED. PATIENT HAS ONE MIDLINE ON HIS LEFT ARM, NO OTHER IV. I TRIED TO PLACE ANOTHER IV BUT PATIENTS VEINS ARE NOT PERMITING ME TO PLACE IV. OTHER RN WILL TRY. PROPOFOL IS STOPPED NOW IT MAY HAVE BEEN MAKING BP LOW. DR TRUONG AWARE. BP IS STABLE NOW. PATIENT IS NOT WAKING UP, IS NOT MOVING SO THREAT OF PULLING OUT ET TUBE IS MINIMAL RIGHT NOW. WILL CONTINUE TO MONITOR CLOSELY.
[2020-07-15] MEDS ORDERED: PROPOFOL 100 ML IV PRN (11:00)
--- NOTE | 2020-07-15 11:05 | NUR ---
DIAPER HAS RED TINGED URINE. WILL NOTIFY
--- NOTE | 2020-07-15 11:10 | NUR ---
PATIENT'S DIAPER HAS DARK RED SPOTS AND SMALL BLOOD CLOTS ON URINE. PATIENT HAD A MODERATE AMOUNT OF PINK TINGED URINE. UNABLE TO SEND TO LAB.
--- NOTE | 2020-07-15 11:14 | NUR ---
DR TRUONG IS AT BEDSIDE.
--- NOTE | 2020-07-15 11:22 | NUR ---
DR TRUONG AWARE OF TEMP 102.5
[2020-07-15] MEDS ORDERED: SODIUM BICARBONATE 8.4% 100 MEQ in IV 1/2NS 1000 ML 1,000 ML IV SCH (11:30)
[2020-07-15] MEDS: ACETAMINOPHEN 650 MG SUPP.RECT RC PRN ×3 (11:39→23:46)
[2020-07-15] MEDS ORDERED: ACETAMINOPHEN 650 MG SUPP.RECT RC ONE ×3 (11:39→23:30)
[2020-07-15] MEDS ORDERED: IV NS 1000 ML 1,000 ML IV ONE (11:45)
[2020-07-15] MEDS ORDERED: VANCOMYCIN IV 1,500 MG in IV DEXTROSE 5% 500 ML IV SCH (11:45)
[2020-07-15] MEDS ORDERED: MEROPENEM 1 G in IV NORMAL SALINE 100 ML IV SCH (11:45)
[2020-07-15] MEDS: MEROPENEM 500 MG in IV NORMAL SALINE 50 ML IV SCH (12:19)
--- NOTE | 2020-07-15 12:20 | NUR ---
BP ELEVATED. CHECKED 3 TIMES, ALL HAD SBP >200. CUFF PLACEMENT AND TUBING CHECKED, ALL INTACT. I STOPPED THE LEVOPHED AND CHECKED IT AND THAT IS ALSO ACCURATE AND INTACT. I CALLED DR RAYMOND, WAITING FOR CALL BACK. WILL KEATON CLOSELY.
[2020-07-15] MEDS ORDERED: MEROPENEM 500MG/NS 50ML PB ***ER PYXIS ONLY IV ONE (12:24)
--- NOTE | 2020-07-15 12:45 | NUR ---
BP COMING DOWN, LEVOPHED RESTARTED AT .5MCG/KG/MIN
[2020-07-15] MEDS ORDERED: VANCOMYCIN IV 1,500 MG in IV DEXTROSE 5% 500 ML IV ONE (13:00)
--- NOTE | 2020-07-15 13:14 | NUR ---
PATIENT TO GET A SECOND IV VIA PICC NURSE. MULTIPLE NURSES ATTEMPT TO PLACE IV WITH NO SUCCESS.
--- NOTE | 2020-07-15 13:15 | NUR ---
LEVOPHED AT .5 MCG/KG/MINUTE
--- NOTE | 2020-07-15 13:51 | NUR ---
PATIENT MOVED TO HIS RIGHT SIDE.
--- NOTE | 2020-07-15 14:13 | NUR ---
WAITING FOR CALL BACK FROM DR RAYMOND. WILL CALL [facility]
--- NOTE | 2020-07-15 15:19 | NUR ---
WE CALLED DR RAYMOND AGAIN, AWAITING HIS CALL. PATIENT SUPINE NOW
--- NOTE | 2020-07-15 15:22 | NUR ---
URINE SENT TO LAB
--- NOTE | 2020-07-15 16:41 | NUR ---
I WILL BE CALLING DR RAYMOND FOR THE THIRD TIME.
--- NOTE | 2020-07-15 16:52 | NUR ---
HOSPITALIST LIMA CHAIN SAW OPERATOR AT BEDSIDE. I TOLD HER MY CONCERNS OF 1)PATIENT HAVING BLOOD CLOTS IN URINE, PINK URINE AND LOW URINE OUTPUT 2) DOES PATIENT NEED IV FLUIDS BESIDES THAT OF THE ONE BOLUS AND IV ABX? 3)PROCALCITONIN IS ELEVATED 4) SPRINGER? 5) MD HAD ORIGINALLY ORDERED FLUIDS WITH BICARB BUT IM UNABLE TO RUN DUE TO IV INCOMPATIBILITY WITH LEVOPHED WHICH IS CRITICAL 6)WAITING FOR PICC LINE NURSE TO ARRIVE TO PLACE PICC OR MID LINE
[2020-07-15] MEDS ORDERED: SODIUM BICARBONATE 8.4% 50 MEQ/50 ML DISP.SYRIN IV ONE ×2 (17:00→17:39)
--- NOTE | 2020-07-15 17:00 | NUR ---
LEVOPHED STILL AT .5 MCG/KG/MINUTE.
--- NOTE | 2020-07-15 17:05 | NUR ---
LEVOPHED INCREASED TO .6MCG/KG/MINUTE FOR SUSTAINED LOW BP
--- NOTE | 2020-07-15 17:10 | NUR ---
PICC LINE NURSE HERE AT BEDSIDE TO PLACE NEW (MULTI) OR ADDITIONAL LINE
--- NOTE | 2020-07-15 17:20 | NUR ---
LEVOPHED INCREASED TO .7 MCG/KG/MINUTE DUE TO LOW BP
[2020-07-15] MEDS ORDERED: PANTOPRAZOLE SODIUM 40 MG VIAL ONE (17:39)
[2020-07-15] MEDS ORDERED: DOSING PER PHARMACY-AMIKACIN IV XX PRN (17:45)
[2020-07-15] MEDS: IV D5 1/2 NS 1000 ML 1,000 ML IV PRN (17:53)
[2020-07-15 18:23] LABS: ABG BASE EXCESS -3.8 mmol/L; ABG HCO3 23.9 mmol/L; ABG PCO2 53.3 mmHg (35.0-45.0); ABG PH 7.269 (7.350-7.450); ABG SITE RIGHT RADIAL; ABG TOTAL HEMOGLOBIN 15.9 G/dL (13.5-18.0); COHb 0.5 % (0.5-1.5); MetHb 0.5 % (0.0-1.5); O2Hb 93.1 % (94.0-97.0); VENT MODE VENT - A/C; VT, ABG 600 mL
--- NOTE | 2020-07-15 18:23 | NUR ---
PROPOFOL HAS BEEN OFF PAST 30 MINUES. PATIENT IS NOT MOVING MUCH...
--- NOTE | 2020-07-15 19:11 | NUR ---
HAND OFF REPORT GIVEN TO LINDA GALVEZ
[2020-07-15 20:56] LABS: BAND % (MANUAL) 1 % (0-10); LYMPHOCYTES % (MANUAL) 7 % (20-40); MONOCYTES % (MANUAL) 1 % (2-10); NEUTROPHILS % (MANUAL) 91 % (42-75)
--- NOTE | 2020-07-15 22:36 | NUR ---
Received call back from Dr. Grier. Updated on patient's condition, new orders received.
--- NOTE | 2020-07-15 23:30 | NUR ---
Ice bags placed on patient, cooling blankets not available.
--- NOTE | 2020-07-15 23:30 | NUR ---
Administered 500 ml IVNS bolus, Administered Neosynephrine 50mg IV titration, started at 0.5mg/kg.
[2020-07-15] MEDS ORDERED: PHENYLEPHRINE 10 MG/1 ML VIAL ONE (23:31)
[2020-07-16] MEDS ORDERED: MEROPENEM 500MG/NS 50ML PB ***ER PYXIS ONLY IV ONE (00:39)
[2020-07-16] MEDS: MEROPENEM 500 MG in IV NORMAL SALINE 50 ML IV SCH ×2 (00:40→11:17)
[2020-07-16] MEDS: PANTOPRAZOLE SODIUM 40 MG VIAL IV SCH ×3 (00:40→09:05)
[2020-07-16] MEDS: NOREPINEPHRINE BITARTRATE 32 MG in IV NORMAL SALINE 218 ML IV PRN ×2 (02:19→14:48)
[2020-07-16] MEDS ORDERED: ACETAMINOPHEN 650 MG SUPP.RECT RC ONE ×2 (03:41→06:22)
[2020-07-16] MEDS: ACETAMINOPHEN 650 MG SUPP.RECT RC PRN ×2 (03:42→06:42)
--- NOTE | 2020-07-16 04:23 | NUR ---
Called Dr. Андрей Grier, regarding patient's low BP and high temp 105.9, new orders given, recommends to call the infectious disease doctor.
--- NOTE | 2020-07-16 04:30 | NUR ---
500 NS IV bolus given to central line. Placed ice bags on patient. Cooling blankets not available.
[2020-07-16] MEDS ORDERED: VASOPRESSIN 20 UNIT/ML VIAL ONE (04:50)
[2020-07-16] MEDS ORDERED: PHENYLEPHRINE 10 MG/1 ML VIAL ONE (04:51)
--- NOTE | 2020-07-16 05:30 | NUR ---
Per RT, patient's right side of neck has enlarged in size. MD made aware.
--- NOTE | 2020-07-16 05:30 | NUR ---
Administered Vasopressin 40u/40ml NS IV to central line @0.04.
[2020-07-16 05:51] LABS: BASOPHILS # (AUTO) 0.1 K/uL (0.0-8.0); BASOPHILS % (AUTO) 0.3 % (0.0-2.0); HEMATOCRIT 47.8 % (36.7-47.1); HEMOGLOBIN 15.7 g/dL (12.5-16.3); LYMPHOCYTES # (AUTO) 0.7 K/uL (20.0-40.0); LYMPHOCYTES % (AUTO) 3.2 % (20.5-51.5); MEAN CORPUSCULAR HEMOGLOBIN 31.4 uug (23.8-33.4); MEAN CORPUSCULAR HGB CONC 33 g/dL (32.5-36.3); MEAN CORPUSCULAR VOLUME 95.3 fL (73.0-96.2); MONOCYTES # (AUTO) 1.5 K/uL (2.0-10.0); MONOCYTES % (AUTO) 7.1 % (0.0-11.0); NEUTROPHILS # (AUTO) 19.4 K/uL (1.8-8.9); NEUTROPHILS % (AUTO) 89.4 % (38.5-71.5); PLATELET COUNT (AUTO) 145 K/uL (152-348); RED BLOOD CELL COUNT(AUTO) 5.01 MIL/uL (4.06-5.63); WHITE BLOOD COUNT (AUTO) 21.7 K/uL (3.6-10.2)
--- NOTE | 2020-07-16 05:52 | NUR ---
Called Infectious Disease MD Dr. Hoang. New Orders given: 2 sets bloodcultures Sputum Culture UA XR Chest Micafungin 100mg IV daily.
[2020-07-16 06:08] LABS: BILIRUBIN,TOTAL 0.7 mg/dL (0.2-1.0); MAGNESIUM 2.7 mg/dL (1.8-2.4); PHOSPHOROUS 5.5 mg/dL (2.5-4.9); POTASSIUM 5.7 mmol/L (3.5-5.1); TOTAL PROTEIN, SERUM 6.7 g/dL (6.4-8.2); VANCOMYCIN,RANDOM 23.9 ug/mL (18.0-26.0)
[2020-07-16 06:24] LABS: CREATININE 7.8 mg/dL (0.6-1.3)
--- NOTE | 2020-07-16 06:54 | NUR ---
Alia harmon in [facility] - 07/16/20 at 0725 by DUDLEY Report given to Yuan alonzo.
--- NOTE | 2020-07-16 07:00 | NUR ---
Called [facility] to page Danitza Chun NP.
[2020-07-16 07:09] LABS: *BILIRUBIN,URIN 3+ (NEGATIVE); *BLOOD, URINE 3+ (NEGATIVE); *CLARITY,URINE TURBID (CLEAR); *COLOR,URINE Brown (YELLOW); *KETONES,URINE 1+ (NEGATIVE); LEUKOCYTE ESTERASE ,URINE 3+ (NEGATIVE); NITRITE, URINE NEGATIVE (NEGATIVE); PH,URINE 5.5 (5.0-8.0); UGLUCOSE TRACE (NEGATIVE)
[2020-07-16] MEDS: IV D5 1/2 NS 1000 ML 1,000 ML IV PRN (07:09)
--- NOTE | 2020-07-16 07:25 | NUR ---
Report given to Kelly alonzo.
[2020-07-16] MEDS ORDERED: PHENYLEPHRINE IV 50 MG in IV NORMAL SALINE 245 ML IV PRN (07:30)
[2020-07-16] MEDS ORDERED: VASOPRESSIN 40 UNIT in IV NORMAL SALINE 40 ML IV PRN (07:30)
[2020-07-16] MEDS ORDERED: MICAFUNGIN SODIUM 100 MG in IV NORMAL SALINE 100 ML IV SCH (08:00)
[2020-07-16] MEDS ORDERED: PHENYLEPHRINE IV 100 MG in IV NORMAL SALINE 240 ML IV PRN (08:00)
[2020-07-16 08:10] LABS: ABG BASE EXCESS -11.5 mmol/L; ABG HCO3 17.7 mmol/L; ABG PCO2 52.5 mmHg (35.0-45.0); ABG PH 7.145 (7.350-7.450); ABG PO2 68.7 mmHg (75.0-100.0); ABG SITE LEFT RADIAL; ABG TOTAL HEMOGLOBIN 15.1 G/dL (13.5-18.0); COHb 0.9 % (0.5-1.5); MetHb 0.6 % (0.0-1.5); O2Hb 90.8 % (94.0-97.0); VENT MODE VENT - A/C; VT, ABG 600 mL
[2020-07-16] MEDS ORDERED: PANTOPRAZOLE SODIUM 40 MG VIAL ONE (08:56)
--- NOTE | 2020-07-16 09:31 | NUR ---
late entry for 07/14/20- when patient came to ER from 2nd floor PANDEMIC disaster charting in ER: 07/14/20@ 1834pm: Patient came from 2nd floor telemetry COVID-19 unit to be intubated by our ER doctor. No ICU/CCU beds or CCU nurse available@this time per nursing supervisor mold shop Hyd. 1844pm: TIMEOUT done. 1845pm: etomidate 20mg slow IVP to right upper arm mid-line IV 1847pm: succinylcholine 150mg slow IVP to right upper arm mid-line IV 1851pm: Patient was successfully intubated by Dr Snyder, ETT size 7.5, 24@the lip with positive ETCO2 color change & bilateral lung sounds per MD post intubation, pending portable chest x-ray@this time 1858pm: etomidate 20 slow IVP given to right upper arm mid-line IV 190pm: 2nd peripheral IV line inserted @ right hand g 20 with one attempt 1909pm :I tried another PIV line@left hand twice but unsuccessful. 1918pm : Propofol drip started@50mcg/kg/min@right upper arm mid-line IV 8pm: portable chest x-ray done 0pm: endorsed to LEONOR Roman, pending registration change [facility] from tele[facility] unit to ER department by registration staff
--- NOTE | 2020-07-16 09:34 | NUR ---
PANDEMIC disaster charting in ER 07/15/20@ 0715am: SBAR received from previous RN Naif- patient is off propofol drip for 12hours, withdraws to deep stimuli, on 3 vasopressor drips, tachycardic@130's/min, tachypneac@30's/min, febrile@102-105 degrees F, ice packs on groins & armpits areas, still FULL CODE (please see paper medical records for noted vital signs) 0815am: ENGINEERING SPECIALIST [facility] (primary) is aware of latest chest x-ray results 0915am: ENGINEERING SPECIALIST for nephrology MD@bedside 0930am:"too unstable for CT scan"@this time, Dr Hebert is aware.
--- NOTE | 2020-07-16 09:57 | NUR ---
Correction: ETT size is 7 and not 7.5, 25cm@lip, SpO2 levels=95%-100% since 0715am today, breath sounds rhonchi bilaterally, diminished@bases
[2020-07-16] MEDS ORDERED: SODIUM POLYSTYRENE SULFONATE ENEMA 30 G/120 ML BOTTLE RC ONE ×2 (10:00→10:29)
[2020-07-16] MEDS: SODIUM BICARBONATE 8.4% 100 MEQ in IV D5 1/2 NS 1000 ML 1,000 ML IV SCH ×2 (10:17→10:25)
[2020-07-16] MEDS ORDERED: FUROSEMIDE 40 MG/4 ML VIAL IV ONE (10:45)
[2020-07-16] MEDS ORDERED: FUROSEMIDE 40 MG/4 ML VIAL ONE (10:51)
--- NOTE | 2020-07-16 10:53 | NUR ---
WILLIS Chun@bedside.
[2020-07-16] MEDS ORDERED: MEROPENEM 1GM/NS 100ML IVPB **ER PYXIS ONLY IV ONE (11:14)
[2020-07-16] MEDS ORDERED: AMIODARONE HCL IV 150 MG in IV DEXTROSE 5% 100 ML IV SCH (12:06)
--- NOTE | 2020-07-16 12:10 | NUR ---
1148am: patient's heart rhythm changed to narrow complex tachycardia rate= low 200's/min, Systolic Blood Pressures@40's, MD notified. Immediate carotid massage done by RN Rony with no response. Crash cart@bedside. Defib pads on. 1159am: 200 joules given by 1201pm: 200joules given by 1204pm: 200joules given by 1206pm: slow IVP (over 5 minutes) of amiodorone 150mg given by 1207pm: 200joules given by 1210pm: patient's rhythm is back to sinus tachycardia,+ weak pulses noted EKG x2 done@1206pm &1214pm
[2020-07-16] MEDS ORDERED: AMIODARONE HCL IV 450 MG in IV DEXTROSE 5% 250 ML IV PRN ×2 (12:15→14:45)
--- NOTE | 2020-07-16 13:05 | NUR ---
Full telephone SBAR report received by TIRE CHANGER AIRCRAFTLEONOR Mendoza.
--- NOTE | 2020-07-16 13:16 | NUR ---
ATHLETE MARKETING AGENT Danitza Chun@bedside. Patient left for CCU 5 in critical condition.
--- NOTE | 2020-07-16 13:16 | NUR ---
Vasopressin drip on HOLD, Levophed drip@0.25mcg/kg/min and neosynephrine drip@1mcg/kg/min, hands off report given to CCU nurse Pal. Patient was escorted to CCU with 2 respiratory therapists & myself in critical condition.
[2020-07-16 13:31] LABS: BACTERIA,URINE FEW /HPF (NONE SEEN); RBC,URINE TNTC /HPF (0-3); SQUAMOUS EPITHELIAL CELL,UR FEW /HPF (NONE SEEN); WBC,URINE TNTC /HPF (0-3)
--- NOTE | 2020-07-16 13:35 | NUR ---
Pt received from ER.
[2020-07-16 14:00] VITALS: BP 145/51
[2020-07-16] MEDS ORDERED: AMIODARONE HCL IV 150 MG in IV DEXTROSE 5% 100 ML IV ONE (14:45)
[2020-07-16 15:00] VITALS: BP 163/78
--- NOTE | 2020-07-16 15:00 | NUR ---
[facility] called. Pt noted to have no pulse. See sherry peoples documentation sheet.
[2020-07-16] MEDS ORDERED: CALCIUM GLUCONATE 1 GM/10 ML VIAL IV ONE (15:55)
[2020-07-16] MEDS ORDERED: SODIUM BICARBONATE 8.4% 50 MEQ/50 ML DISP.SYRIN IV ONE ×2 (15:55→20:59)
[2020-07-16 16:00] VITALS: BP 48/38
[2020-07-16] MEDS ORDERED: DOPamine IV DRIP 400 MG/250ML 250 ML IV PRN (16:00)
[2020-07-16 17:00] VITALS: BP 47/27
[2020-07-16] MEDS ORDERED: VASOPRESSIN 20 UNIT in IV NORMAL SALINE 40 ML IV PRN (17:00)
[2020-07-16 18:00] VITALS: BP 47/27
--- NOTE | 2020-07-16 18:19 | NUR ---
Code [employer] called. Pt noted to be pulseless and unable to obtain blood pressure or spo2 readings.
[2020-07-16 18:25] VITALS: BP 0/0
--- NOTE | 2020-07-16 18:25 | NUR ---
Pt pronounced by WILLIS Chun. Pt apneic for 5 minutes. Pupils fixed and dilated. No audible heart tones, breath sounds for 1 minute. No palpable pulses for 1 minute. No corneal reflexes. Brother and supervisor mails made aware and notified. Pt to be transferred to [place].
--- NOTE | 2020-07-16 18:41 | NUR ---
[employer] notified. Case #: [id number]
--- NOTE | 2020-07-16 19:40 | NUR ---
Called [facility]. Body to be picked up and sent to [place].
[2020-07-16] MEDS ORDERED: EPINEPHRINE 1:10,000 1 MG/10 ML DISP.SYRIN IV ONE ×2 (20:59)
--- NOTE | 2020-07-16 21:00 | NUR ---
patient body was picked up along with the belongings
[2020-07-17] MEDS ORDERED: VANCOMYCIN IV 1,250 MG in IV DEXTROSE 5% 250 ML IV SCH (10:00)
== END 2020-07-16 21:00 | disposition expired | DRG 871 ==
LOC: ER 21:45 → TRANSITION 07-15 02:10 → UNDOADMIN 07-15 02:10 → TRANSITION 07-16 12:55 → CCU 07-16 12:55 → ER 07-16 13:16 → UNDODISIN 07-16 21:00
PROVIDERS: ADMIT Nurse Practitioner Acute Care; ATTEND Nurse Practitioner Acute Care
PROC: 5A1945Z Respiratory Ventilation, 24-96 Consecutive Hours (ICD-10-PCS; principal; 2020-07-14)
PROC: 0BH17EZ Insertion of Endotracheal Airway into Trachea, Via Natural or Artificial Opening (ICD-10-PCS; 2020-07-14)
PROC: 5A2204Z Restoration of Cardiac Rhythm, Single (ICD-10-PCS; 2020-07-16)
DX: A41.89 Other specified sepsis (principal); U07.1 COVID-19; J12.82 Pneumonia due to coronavirus disease 2019; J96.01 Acute respiratory failure with hypoxia; N17.0 Acute kidney failure with tubular necrosis; E43 Unspecified severe protein-calorie malnutrition; R65.21 Severe sepsis with septic shock; I13.0 Hypertensive heart and chronic kidney disease with heart failure and stage 1 through stage 4 chronic kidney disease, or unspecified chronic kidney disease; G93.40 Encephalopathy, unspecified; E87.2 Acidosis; T79.7XXA Traumatic subcutaneous emphysema, initial encounter; E87.0 Hyperosmolality and hypernatremia; F41.9 Anxiety disorder, unspecified; K21.9 Gastro-esophageal reflux disease without esophagitis; M19.90 Unspecified osteoarthritis, unspecified site; N13.9 Obstructive and reflux uropathy, unspecified; I50.9 Heart failure, unspecified; E05.90 Thyrotoxicosis, unspecified without thyrotoxic crisis or storm; E66.9 Obesity, unspecified; I48.91 Unspecified atrial fibrillation; X58.XXXA Exposure to other specified factors, initial encounter; Y93.9 Activity, unspecified; Y92.89 Other specified places as the place of occurrence of the external cause; Z68.33 Body mass index [BMI] 33.0-33.9, adult; E87.5 Hyperkalemia; E88.09 Other disorders of plasma-protein metabolism, not elsewhere classified
CPT/HCPCS: 36415; 36600; 70030-TC; 71045; 83605; 83615; 83735; 83970; 84100; 84443; 85025; 85610; 85730; 86140; 86850; 86900; 86901; 87040; 87070; 87077; 87086; 93005; 94002; 94003; 94660; A4217; A4663; C9113; G0378; J0171; J0282; J0456; J0610; J0692; J0696; J1100; J1265; J1650; J1940; J2060; J2185; J2248; J2370; J2920; J2930; J3370; J3490; J3535; J7030; J7050; J7060